=== PATIENT | female | born 1995 | race Caucasian/White ===

== ENCOUNTER 2023-05-08 09:45 | Emergency (ER) | payer OTHER, SELFPAY ==
[2023-05-08 10:04] VITALS: BP 117/71; PULSE 71; RESP 16; TEMP 36.3; O2SAT 98; BMI 29.2
--- NOTE | 2023-05-08 10:10 | DI.RAD.S_ITS ---
PROCEDURE: XR FINGER LT MIN 2V INDICATIONS: slammed in a door TECHNIQUE: AP hand, 2 views of the Dom finger(s) acquired. COMPARISON: None. FINDINGS: Bones: No fractures or dislocations. No suspicious bony lesions. Negative ulnar variance Soft tissues: No suspicious soft tissue calcifications. IMPRESSION: No acute bony abnormality. Negative ulnar variance Dictated by: Trev Kenney M.D. on 05/08/2023 at 9:39 Approved by: Trev Kenney M.D. on 05/08/2023 at 9:40
--- NOTE | 2023-05-08 11:23 | ED_ITS ---
HPI - Extremity Injury (Upper) <Evnes Plaza PA-C - Last Filed: 05/08/23 11:39> General Chief Complaint: Extremity Injury, Upper Stated Complaint: poss thumb fracture Time Seen by Provider: 05/08/23 11:16 History of Present Illness HPI narrative: This is a 27-year-old female presents emergency department due to left thumb injury that she sustained 2 days ago after slamming car door in it. She reports increased pain to the thumb. She states that this pain is spreading up to her hand. Denies any breaks in the skin but is concerned with the bleeding underneath the nail. States there is a slight amount of paresthesias Related Data Previous Rx's Medication Instructions Recorded cyclobenzaprine 10 mg tablet 10 mg PO TID PRN muscle spasm #20 05/08/23 tabs Review of Systems <Evens Palza PA-C - Last Filed: 05/08/23 11:39> Review of Systems Narrative: GENERAL: Denies chills, fatigue, malaise, fever, sweats. HEENT: Denies sinus pain, ear pain, sore throat, difficulty swallowing, dizziness. RESPIRATORY: Denies dyspnea, cough, wheezing, hemoptysis, sputum. CARDIOVASCULAR: Denies chest pain, palpitations, orthopnea, edema, GASTROINTESTINAL: Denies nausea, vomiting, abdominal pain, diarrhea, constipation, melena. : Denies dysuria, frequency, incontinence, hematuria, urinary retention. MUSCULOSKELETAL: Reports left thumb pain, otherwise denies weakness, joint pain, or bony pain SKIN: Denies rash, skin lesions, or other NEUROLOGIC: Denies weakness, headache, numbness, change in speech, confusion, seizures, incoordination. PSYCHIATRIC: No concerning psychosocial issues. 12 point review of systems is negative except for those stated above Exam <Evens Plaza PA-C - Last Filed: 05/08/23 11:39> Narrative Exam Narrative: GENERAL: Well-developed patient, in mild distress. HEAD: Atraumatic. Normocephalic. EYES: Pupils equal round and reactive. Extraocular motions intact. No scleral icterus. No injection or drainage. ENT: Nose without bleeding, purulent drainage. Throat without erythema, tonsillar hypertrophy or exudate. Airway patent. NECK: Trachea midline. Non tender CARDIOVASCULAR: Regular rate and rhythm without murmurs, gallops, or rubs. RESPIRATORY: Clear to auscultation. Breath sounds equal bilaterally. No wheezes, rales, or rhonchi. GASTROINTESTINAL: Abdomen soft, non-tender, nondistended. EXTREMITIES: Tenderness to palpation to the generalized left thumb. Subungual hematoma approximately 50% coverage BACK: Nontender without deformity or crepitance. No flank tenderness. NEURO: AOx3. SKIN: No rash or erythema of visible areas Initial Vital Signs Initial Vital Signs: Vital Signs Temperature 97.4 F L 05/08/23 10:04 Pulse Rate 71 05/08/23 10:04 Respiratory Rate 16 05/08/23 10:04 Blood Pressure 117/71 05/08/23 10:04 Pulse Oximetry 98 05/08/23 10:04 Oxygen Delivery Method Room Air 05/08/23 10:04 <Debi Kidd DO - Last Filed: 05/08/23 14:58> Initial Vital Signs Initial Vital Signs: Vital Signs Temperature 97.4 F L 05/08/23 10:04 Pulse Rate 71 05/08/23 10:04 Respiratory Rate 16 05/08/23 10:04 Blood Pressure 117/71 05/08/23 10:04 Pulse Oximetry 98 05/08/23 10:04 Oxygen Delivery Method Room Air 05/08/23 10:04 Course <Evens Plaza PA-C - Last Filed: 05/08/23 11:39> Orders Ordered: ED Orders 05/08/23 10:10 XR finger LT min 2V Stat Vital Signs Vital signs: Vital Signs - 8 hr 05/08/23 10:04 05/08/23 11:35 Temperature 97.4 F L 99.2 F Pulse Rate 71 78 Respiratory Rate 16 18 Blood Pressure 117/71 109/66 Pulse Oximetry 98 98 Oxygen Delivery Method Room Air Room Air <DO Romain Carrasco Last Filed: 05/08/23 14:58> Orders Ordered: ED Orders 05/08/23 10:10 XR finger LT min 2V Stat Vital Signs Vital signs: Vital Signs - 8 hr 05/08/23 10:04 05/08/23 11:35 Temperature 97.4 F L 99.2 F Pulse Rate 71 78 Respiratory Rate 16 18 Blood Pressure 117/71 109/66 Pulse Oximetry 98 98 Oxygen Delivery Method Room Air Room Air MDM - Extremity Injury (Upper) <NEIL Moore Filed: 05/08/23 11:39> Imaging Data Extremity x-ray #1: Radiologist's Impression: [address] [address] XRay Report Signed Patient: Rosmery Dooley MR#: [id number] : 1995 Acct:[id number] Age/Sex: 27 / F Date of Service: 05/08/23 Loc: ED Accession Number: [id number] Procedure: XR finger LT min 2V Ordering Provider: Debi Kidd D.O. PROCEDURE: XR FINGER LT MIN 2V INDICATIONS: slammed in a door TECHNIQUE: AP hand, 2 views of the Dom finger(s) acquired. COMPARISON: None. FINDINGS: Bones: No fractures or dislocations. No suspicious bony lesions. Negative ulnar variance Soft tissues: No suspicious soft tissue calcifications. IMPRESSION: No acute bony abnormality. Negative ulnar variance Dictated by: Terv Kenney M.D. on 05/08/2023 at 9:39 Approved by: Trev Kenney M.D. on 05/08/2023 at 9:40 MDM Narrative Medical decision making narrative: MDM * differential diagnosis includes but not limited to fracture, subungual hematoma, sprain * Prior records reviewed: Patient has not been to the emergency department in the past. * My lab interpretation: None obtained * My imgaing interpretation: X-ray negative for fractures or other abnormalities * Clinical Decision Rules/Scores evaluated: None * Independent discussions with: None ED Course: This is a 27-year-old female presents emergency department due to left thumb injury after swimming in a car door. X-ray was negative for fractures. There was a subungual hematoma. Drainage was discussed with the patient but shared decision-making utilized and no drainage will be performed today. Recommended ibuprofen and Tylenol as needed for the pain. Patient requested a Velcro thumb spica splint which she received. She also requested stated muscle relaxants as ibuprofen and Tylenol have been ineffective. This will also be prescribed. Shared Decision Making: Discussed plan with patient who is comfortable with the plan Social Considerations: None Disposition: Discharged to home Discharge Plan Departure Patient Disposition: Home Clinical Impression: Crush injury to thumb Qualifiers: Encounter type: subsequent encounter Laterality: left Qualified Code(s): S67.02XD - Crushing injury of left thumb, subsequent encounter Activity Restrictions/Additional Instructions: Thank you for coming to the [facility] Emergency Department today. As we discussed your repeat x-ray was negative for fractures. You may use the Velcro splint for comfort. I also recommend ibuprofen and Tylenol to help with the pain as well as ice and rest. You should also elevate the hand to help decrease the swelling. You may also take the muscle relaxants as prescribed. I hope you feel better soon. Please follow up with your primary care provider within a week if your symptoms continue. If you do not have a primary care provider please contact the [facility] Resource line at [phone]. They will ask some questions about your medical history and help you get set up with a provider in the community. Prescriptions: New cyclobenzaprine 10 mg tablet 10 mg PO TID PRN (Reason: muscle spasm) Qty: 20 0RF Stand Alone Forms: Patient Portal/API ED Sign-out <Debi Kidd DO - Last Filed: 05/08/23 14:58> Cosign ED Attending Adriane Attestation: I was immediately available in the department for consultation.
[2023-05-08 11:35] VITALS: BP 109/66; PULSE 78; RESP 18; TEMP 37.3; O2SAT 98
== END 2023-05-08 11:49 | disposition home or self-care (01) ==
PROVIDERS: Emergency Provider Physician Assistant Medical
DX: S67.02XA Crushing injury of left thumb, initial encounter (principal); X58.XXXA Exposure to other specified factors, initial encounter
CPT/HCPCS: 73140; 99283

== ENCOUNTER 2023-10-08 10:36 | Emergency (ER) | payer OTHER, SELFPAY ==
[2023-10-08 10:48] VITALS: BP 113/62; PULSE 68; RESP 16; TEMP 36.8; O2SAT 96; BMI 29.2
[2023-10-08 11:19] LABS: Pregnancy Test Urine Negative (Negative)
--- NOTE | 2023-10-08 11:51 | DI.US.S_ITS ---
PROCEDURE: US PELVIC COMPLETE INDICATIONS: LLQ pain, hx of ectopic x 2 TECHNIQUE: Real-time scanning was performed of the pelvic organs, with image documentation. Additional endovaginal scanning was necessary due to incomplete visualization of the adnexal and endometrial structures by transabdominal scanning. COMPARISON: None. FINDINGS: Uterus: Uterus is anteverted and normal in size at 9.3 x 4.9 x 6.4 cm. The myometrium is homogeneous. The endometrium measures 13.5 mm combined thickness. No evidence of intrauterine identified. Ovaries: The right ovary measures 3 x 3 x 1.8 cm, with a calculated ovarian volume of 8.6 cc. The left ovary measures 3.5 x 2 x 3.5 cm, with a calculated ovarian volume of 12.7 cc. The ovaries have a normal sonographic appearance. Less than 12 follicles can be seen in each ovary. No adnexal masses are seen. Other: No pathologic free abdominal or pelvic fluid. IMPRESSION: No intrauterine identified. Correlate with laboratory values. Normal pelvic ultrasound Dictated by: Trev Kenney M.D. on 10/08/2023 at 13:10 Approved by: Trev Kenney M.D. on 10/08/2023 at 13:20
[2023-10-08] MEDS: ONDANSETRON 4 MG ODT SL (12:14)
--- NOTE | 2023-10-08 12:15 | PC.NURSE ---
Patient reports she is three days late on her period with breast tenderness and nausea for the last week. She has been 9 times with 5 miscarriages and multiple ectopic pregnancies. She states home tests the last week have been negative however this is not uncommon for her. Requests a blood test. She also reports intermittent diarrhea with left side of abdomen pain.
[2023-10-08 13:24] LABS: Add Manual Diff / Slide Review NO; Basophils Absolute Auto 0 /uL (0-100); Basophils Percent Auto 0.5 % (0-2); Eosinophils Absolute Auto 100 /uL (0-450); Eosinophils Percent Auto 1.5 % (2-4); Hematocrit 37.1 % (36-46); Hemoglobin 11.7 g/dL (12.0-16.0); Lymphocytes Absolute Auto 2700 /uL (1100-4500); Lymphocytes Percent Auto 30.5 % (25-40); Mean Corpuscular HGB Conc 31.4 % (30-36); Mean Corpuscular Hemoglobin 24.2 PG (26-34); Monocytes Absolute Auto 400 /uL (0-900); Monocytes Percent Auto 4.8 % (3-14); Neutrophils Absolute Auto 5500 /uL (1500-7000); Neutrophils Percent Auto 62.7 % (50-75); Platelet Count 389 X10^3/uL (150-400); Red Blood Cell Count 4.81 X10^6/uL (4.0-5.2); Red Cell Distribution Width 17.4 % (11.6-14.8); White Blood Cell Count 8.8 X10^3/uL (4.5-11.0)
[2023-10-08 13:42] LABS: Alanine Aminotransferase 28 IU/L (<35); Albumin 4.4 g/dL (3.5-5.0); Albumin Globulin Ratio 1.3 (1.0-2.8); Alkaline Phosphatase 117 U/L (38-126); Aspartate Aminotransferase 33 IU/L (14-36); BUN Creatinine Ratio 15.6 (6-22); Bilirubin Total 0.4 mg/dL (0.2-1.3); Blood Urea Nitrogen 10 mg/dL (7-17); Calcium 8.9 mg/dL (8.4-10.2); Carbon Dioxide 24 mmol/L (22-32); Chloride 110 mmol/L (98-107); Estimated Glomerular Filt Rate > 60 mL/min (>60); Globulin 3.5 g/dL (1.7-4.1); Glucose 88 mg/dL (70-100); HEMOLYSIS < 15 (0-50); Potassium 4.4 mmol/L (3.4-5.1); Sodium 140 mmol/L (137-145); Total Protein 7.9 g/dL (6.3-8.2)
--- NOTE | 2023-10-08 13:42 | ED_ITS ---
HPI - Nausea/Vomiting/Diarrhea <Valarie Collins PA-C - Last Filed: 10/08/23 19:45> General Chief complaint: Nausea/Vomiting/Diarrhea Stated complaint: nausea, diarrhea, light headed Time Seen by Provider: 10/08/23 11:29 Source: patient Mode of arrival: Ambulatory History of Present Illness HPI Narrative: 27-year-old female here today for nausea and diarrhea along with left lower quadrant pain. States she has had nausea for 1 week. The diarrhea was ongoing for 3 or 4 days which she presumed for systemic flu then it resolved for a couple of days before returning yesterday. Diarrhea is watery. She has off and on left lower quadrant pain which she describes as sharp. No fevers or chills. No urinary symptoms. No vaginal bleeding. States her menses is 3 days late so she has taken several at home tests to which were negative and 1 which was maybe a faint positive. She has a history of multiple ectopic pregnancies. States she has had 9 total pregnancies and 5 resulted in miscarriage. She has some stringy white vaginal discharge but no vaginal itching, foul smell, or purulent discharge. No STD concerns. No vomiting. Related Data Previous Rx's Medication Instructions Recorded cyclobenzaprine 10 mg tablet 10 mg PO TID PRN muscle spasm #20 05/08/23 tabs ondansetron HCl 4 mg tablet 4 mg PO Q8H PRN nausea and 10/08/23 vomiting #10 tabs Allergies Allergy/AdvReac Type Severity Reaction Status Date / Time naproxen AdvReac Verified 10/08/23 10:48 Review of Systems <Valarie Collins PA-C - Last Filed: 10/08/23 19:45> Review of Systems ROS Unobtainable: All systems reviewed & are unremarkable except as noted in HPI and below Patient History <Valarie Collins PA-C - Last Filed: 10/08/23 19:45> Social History Smoking Status: Never smoker Smoking Status: Never smoker alcohol intake frequency: holidays/special occasions only Substance Use Type: marijuana Exam <NEIL Badillo Last Filed: 10/08/23 19:45> Narrative Exam Narrative: GENERAL: Well-developed, well-nourished, appears stated age. In no acute distress HEAD: Atraumatic. Normocephalic. EYES: Pupils equal round and reactive. Extraocular motions intact. No scleral icterus. No injection or drainage. ENT: Nose without bleeding, purulent drainage. Airway patent. NECK: Trachea midline. Non tender RESPIRATORY: Respiratory rate and effort normal EXTREMITIES: No edema or joint tenderness. ABD: Soft, nondistended, no rebound or guarding. Mild pelvic area. No suprapubic tenderness. No mass palpated. NEURO: AOx3. SKIN: No rash or erythema of visible areas Initial Vital Signs Initial Vital Signs: Vital Signs Temperature 98.3 F 10/08/23 10:48 Pulse Rate 68 10/08/23 10:48 Respiratory Rate 16 10/08/23 10:48 Blood Pressure 113/62 10/08/23 10:48 Pulse Oximetry 96 10/08/23 10:48 Oxygen Delivery Method Room Air 10/08/23 10:48 <Alexandre Mcdermott DO - Last Filed: 10/13/23 07:08> Initial Vital Signs Initial Vital Signs: Vital Signs Temperature 98.3 F 10/08/23 10:48 Pulse Rate 68 10/08/23 10:48 Respiratory Rate 16 10/08/23 10:48 Blood Pressure 113/62 10/08/23 10:48 Pulse Oximetry 96 10/08/23 10:48 Oxygen Delivery Method Room Air 10/08/23 10:48 Course <Valarie Collins PA-C - Last Filed: 10/08/23 19:45> Orders Ordered: Discontinued Medications Ondansetron HCl (Ondansetron 4 Mg Odt) 4 mg SL NOW ONE Stop: 10/08/23 11:52 Last Admin: 10/08/23 12:14 Dose: 4 mg Documented By: BRIANNA Vital Signs Vital signs: Vital Signs - 8 hr 10/08/23 14:39 Temperature 98.0 F Pulse Rate 67 Respiratory Rate 18 Blood Pressure 104/66 Pulse Oximetry 100 Oxygen Delivery Method Room Air <Alexandre Mcdermott DO - Last Filed: 10/13/23 07:08> Orders Ordered: Discontinued Medications Ondansetron HCl (Ondansetron 4 Mg Odt) 4 mg SL NOW ONE Stop: 10/08/23 11:52 Last Admin: 10/08/23 12:14 Dose: 4 mg Documented By: BRIANNA Vital Signs Vital signs: Vital Signs - 8 hr 10/08/23 14:39 Temperature 98.0 F Pulse Rate 67 Respiratory Rate 18 Blood Pressure 104/66 Pulse Oximetry 100 Oxygen Delivery Method Room Air MDM - Nausea/Vomiting/Diarrhea <Valarie Natalia Collins PA-C - Last Filed: 10/08/23 19:45> Lab Data 10/08/23 12:26 10/08/23 12:26 Labs: Lab Results 10/08/23 10/08/23 Range/Units 11:18 12:26 WBC 8.8 (4.5-11.0) X10^3/uL RBC 4.81 (4.0-5.2) X10^6/uL Hgb 11.7 L (12.0-16.0) g/dL Hct 37.1 (36-46) % MCV 77.0 L (80-100) fL MCH 24.2 L (26-34) PG MCHC 31.4 (30-36) % RDW 17.4 H (11.6-14.8) % Plt Count 389 (150-400) X10^3/uL Neut % (Auto) 62.7 (50-75) % Lymph % (Auto) 30.5 (25-40) % [place] % (Auto) 4.8 (3-14) % Eos % (Auto) 1.5 L (2-4) % Baso % (Auto) 0.5 (0-2) % Neut # (Auto) 5500 (3506-7494) /uL Lymph # (Auto) 2700 (2024-3480) /uL [place] # (Auto) 400 (0-900) /uL Eos # (Auto) 100 (0-450) /uL Baso # (Auto) 0 (0-100) /uL Sodium 140 (137-145) mmol/L Potassium 4.4 (3.4-5.1) mmol/L Chloride 110 H (98-107) mmol/L Carbon Dioxide 24 (22-32) mmol/L BUN 10 (7-17) mg/dL Creatinine 0.64 (0.52-1.04) mg/dL Estimated GFR > 60 (>60) mL/min BUN/Creatinine Ratio 15.6 (6-22) Glucose 88 (70-100) mg/dL Calcium 8.9 (8.4-10.2) mg/dL Total Bilirubin 0.4 (0.2-1.3) mg/dL AST 33 (14-36) IU/L ALT 28 (<35) IU/L Alkaline Phosphatase 117 (38-126) U/L Total Protein 7.9 (6.3-8.2) g/dL Albumin 4.4 (3.5-5.0) g/dL Globulin 3.5 (1.7-4.1) g/dL Albumin/Globulin Ratio 1.3 (1.0-2.8) HCG, Quant < 2.4 mIU/mL Urine Test Negative (Negative) Urine Dip Bedside Urine Glucose Negative Bedside Urine Bilirubin - Negative Bedside Urine Ketone - Negative Urine Specific [place] 1.030 Bedside Urine Occult Blood - Negative Bedside Urine pH 6.0 Bedside Urine Protein - Negative Bedside Urine Urobilinogen - Negative Bedside Urine Nitrite - Negative Bedside Urine Leukocytes - Negative Esterase Imaging Data Pelvic US: Radiologist's Impression: [address] [address] Ultrasound Report Signed Patient: Rosmery Dooley MR#: [id number] : 1995 Acct:[id number] Age/Sex: 27 / F Date of Service: 10/08/23 Loc: ED Accession Number: [id number] Procedure: US pelvic complete Ordering Provider: Valarie Collins P.A-C PROCEDURE: US PELVIC COMPLETE INDICATIONS: LLQ pain, hx of ectopic x 2 TECHNIQUE: Real-time scanning was performed of the pelvic organs, with image documentation. Additional endovaginal scanning was necessary due to incomplete visualization of the adnexal and endometrial structures by transabdominal scanning. COMPARISON: None. FINDINGS: Uterus: Uterus is anteverted and normal in size at 9.3 x 4.9 x 6.4 cm. The myometrium is homogeneous. The endometrium measures 13.5 mm combined thickness. No evidence of intrauterine identified. Ovaries: The right ovary measures 3 x 3 x 1.8 cm, with a calculated ovarian volume of 8.6 cc. The left ovary measures 3.5 x 2 x 3.5 cm, with a calculated ovarian volume of 12.7 cc. The ovaries have a normal sonographic appearance. Less than 12 follicles can be seen in each ovary. No adnexal masses are seen. Other: No pathologic free abdominal or pelvic fluid. IMPRESSION: No intrauterine identified. Correlate with laboratory values. Normal pelvic ultrasound Dictated by: Trev Kenney M.D. on 10/08/2023 at 13:10 Approved by: Trev Kenney M.D. on 10/08/2023 at 13:20 [facility] Narrative Medical decision making narrative: Differential includes viral gastroenteritis, ectopic , normal uterine , ovarian cyst Patient's urine and serum HCG negative today. Her pelvic ultrasound was unremarkable. She was given some Zofran for nausea which she says helped considerably. She has been having some intermittent watery diarrhea and nausea x1 week which appears to be consistent with viral gastroenteritis. Her vital signs and her CBC and CMP are unremarkable, she appears well and is nontoxic. Relatively benign abdominal exam other than mild TTP to the left lower quadrant. Recommend continuing supportive care at home with hydration, brat diet, Zofran as needed. Her menses is 3 days late so continue to monitor and if she has any very heavy/abnormal bleeding she should return to the ED. If she is any new or worsening symptoms she should return to the ED, otherwise follow up with PCP if not improving. <Alexandre Mcdermott, DO - Last Filed: 10/13/23 07:08> Lab Data Labs: Lab Results 10/08/23 10/08/23 Range/Units 11:18 12:26 WBC 8.8 (4.5-11.0) X10^3/uL RBC 4.81 (4.0-5.2) X10^6/uL Hgb 11.7 L (12.0-16.0) g/dL Hct 37.1 (36-46) % MCV 77.0 L (80-100) fL MCH 24.2 L (26-34) PG MCHC 31.4 (30-36) % RDW 17.4 H (11.6-14.8) % Plt Count 389 (150-400) X10^3/uL Neut % (Auto) 62.7 (50-75) % Lymph % (Auto) 30.5 (25-40) % [place] % (Auto) 4.8 (3-14) % Eos % (Auto) 1.5 L (2-4) % Baso % (Auto) 0.5 (0-2) % Neut # (Auto) 5500 (6859-6755) /uL Lymph # (Auto) 2700 (6115-2602) /uL [place] # (Auto) 400 (0-900) /uL Eos # (Auto) 100 (0-450) /uL Baso # (Auto) 0 (0-100) /uL Sodium 140 (137-145) mmol/L Potassium 4.4 (3.4-5.1) mmol/L Chloride 110 H (98-107) mmol/L Carbon Dioxide 24 (22-32) mmol/L BUN 10 (7-17) mg/dL Creatinine 0.64 (0.52-1.04) mg/dL Estimated GFR > 60 (>60) mL/min BUN/Creatinine Ratio 15.6 (6-22) Glucose 88 (70-100) mg/dL Calcium 8.9 (8.4-10.2) mg/dL Total Bilirubin 0.4 (0.2-1.3) mg/dL AST 33 (14-36) IU/L ALT 28 (<35) IU/L Alkaline Phosphatase 117 (38-126) U/L Total Protein 7.9 (6.3-8.2) g/dL Albumin 4.4 (3.5-5.0) g/dL Globulin 3.5 (1.7-4.1) g/dL Albumin/Globulin Ratio 1.3 (1.0-2.8) HCG, Quant < 2.4 mIU/mL Urine Test Negative (Negative) Urine Dip Bedside Urine Glucose Negative Bedside Urine Bilirubin - Negative Bedside Urine Ketone - Negative Urine Specific [place] 1.030 Bedside Urine Occult Blood - Negative Bedside Urine pH 6.0 Bedside Urine Protein - Negative Bedside Urine Urobilinogen - Negative Bedside Urine Nitrite - Negative Bedside Urine Leukocytes - Negative Esterase Discharge Plan Departure Patient Disposition: Home Clinical Impression: Nausea Diarrhea Qualifiers: Diarrhea type: unspecified type Qualified Code(s): R19.7 - Diarrhea, unspecified Instructions: Diarrhea, DI for Nausea -- Adult Activity Restrictions/Additional Instructions: Thank you for choosing us to care for you today. You were seen for nausea and diarrhea. Your test was negative and your pelvic ultrasound showed no abnormal studies. Your blood tests were all reassuring that you do not have any significant infection or other serious illness at this time. You likely have a viral stomach bug that typically resolves on its own within 1-2 weeks. You have been given a prescription for nausea medication to take as needed. You may also take 2 tablets of Imodium which can be found [id number] for her diarrhea. Please continue to hydrate, avoid dairy products, and get plenty of rest. If her symptoms do not resolve in another 1-2 weeks please follow up with your primary care physician. Prescriptions: New ondansetron HCl 4 mg tablet 4 mg PO Q8H PRN (Reason: nausea and vomiting) Qty: 10 0RF No Action cyclobenzaprine 10 mg tablet 10 mg PO TID PRN (Reason: muscle spasm) Qty: 20 0RF Stand Alone Forms: Patient Portal/API ED Sign-out <Alexandre Mcdermott, DO - Last Filed: 10/13/23 07:08> Cosign ED Attending Cosignature Attestation: Dr Mcdermott Co-Sign Statement: I was available for consultation during this patient's emergency department visit. This chart is signed by myself for administrative purposes only. I did not have direct contact with this patient during this visit. They were seen independently by the APC.
[2023-10-08 13:58] LABS: HCG Quantitative /Beta subunit < 2.4 mIU/mL
[2023-10-08 14:39] VITALS: BP 104/66; PULSE 67; RESP 18; TEMP 36.7; O2SAT 100
== END 2023-10-08 14:56 | disposition home or self-care (01) ==
PROVIDERS: Emergency Provider Physician Assistant
DX: R11.0 Nausea (principal); R19.7 Diarrhea, unspecified; R10.32 Left lower quadrant pain
CPT/HCPCS: 36415; 76856; 80053; 81003; 81025; 84702; 85025; 99284

== ENCOUNTER 2023-11-20 15:08 | Emergency (ER) | payer MEDICAID, OTHER, SELFPAY ==
[2023-11-20 15:30] VITALS: BP 122/59; PULSE 85; RESP 16; TEMP 37.1; O2SAT 97; BMI 28.4
--- NOTE | 2023-11-20 15:38 | DI.RAD.S_ITS ---
PROCEDURE: XR ANKLE RT MIN 3V INDICATIONS: Fell, having swelling and unable to bear weight. TECHNIQUE: 3 views of the ankle were acquired. COMPARISON: None. FINDINGS: Bones: No fractures or dislocations. Ankle mortise is normally aligned. No suspicious bony lesions. Dorsal calcaneal spur. Soft tissues: No tibiotalar joint effusion. Achilles tendon appears normal. IMPRESSION: No acute bony abnormality or significant effusion. Dictated by: Trev Kenney M.D. on 11/20/2023 at 15:26 Approved by: Trev Kenney M.D. on 11/20/2023 at 15:27
--- NOTE | 2023-11-20 16:51 | ED.LOWEXIN ---
HPI - Extremity Injury (Lower) <STEPHANIE Cramer - Last Filed: 11/20/23 17:07> General Chief Complaint: Extremity Injury, Lower Stated Complaint: R Ankle Injury Time Seen by Provider: 11/20/23 16:32 Source: patient Mode of arrival: Family Vehicle History of Present Illness HPI Narrative: 28-year-old female, never smoker, presents to the emergency department with right ankle pain x1 week. Patient was walking[place], and believes she rolled her ankle. Patient reports that home treatment included rest, ice and elevation. Patient took the weekend off because the pain seems to be getting worse and she is unable to bear weight. Related Data Previous Rx's Medication Instructions Recorded cyclobenzaprine 10 mg tablet 10 mg PO TID PRN muscle spasm #20 05/08/23 tabs ondansetron HCl 4 mg tablet 4 mg PO Q8H PRN nausea and 10/08/23 vomiting #10 tabs Allergies Allergy/AdvReac Type Severity Reaction Status Date / Time naproxen AdvReac Verified 10/08/23 10:48 Review of Systems <STEPHANIE Cramer - Last Filed: 11/20/23 17:07> Review of Systems Narrative: Narrative: See HPI. GENERAL: Denies chills, fatigue, fever, sweats. HEENT: Denies sinus pain, ear pain, sore throat, difficulty swallowing, dizziness. RESPIRATORY: Denies dyspnea, cough, wheezing, sputum. CARDIOVASCULAR: Denies chest pain, palpitations, edema. GASTROINTESTINAL: Denies nausea, vomiting, abdominal pain, diarrhea, constipation. : Denies dysuria, frequency, incontinence, hematuria, urinary retention, flank pain. MSK: Endorses right ankle pain. SKIN: Denies rash, skin lesions, or pruritis. NEUROLOGIC: Denies weakness, dizziness, headache, numbness, confusion. PSYCHIATRIC: No concerning psychosocial issues. Patient History <STEPHANIE Cramer - Last Filed: 11/20/23 17:07> Social History Smoking Status: Never smoker Smoking Status: Never smoker alcohol intake frequency: holidays/special occasions only Substance Use Type: marijuana Exam <STEPHANIE Cramer - Last Filed: 11/20/23 17:07> Narrative Exam Narrative: Exam Narrative: GENERAL: This is a well-nourished, well-developed patient, in no acute distress HEAD: Atraumatic. Normocephalic. ENT: Nose without bleeding, purulent drainage. Airway patent. RESPIRATORY: Respiratory rate and effort are normal. MSK: Moves all extremities. Normal range of motion, no clubbing or edema. Neurovascularly intact. NEURO: A&O x 3. SKIN: Warm, dry, no rashes or lesions noted. ANKLE: There is minimal swelling, bruising but no asymmetry. There is no tenderness to general palpation. Sensation grossly intact. There is mild tenderness inferior to medial malleolus but no tenderness over the lateral malleolus, proximal tibia/fibula, metatarsals, midfoot or arch. The anterior mortise is non-tender. Flexion and extension is intact. Unable to test for stability or laxity due to pain. The contralateral ankle exam is unremarkable. Initial Vital Signs Initial Vital Signs: Vital Signs Temperature 98.8 F 11/20/23 15:30 Pulse Rate 85 11/20/23 15:30 Respiratory Rate 16 11/20/23 15:30 Blood Pressure 122/59 L 11/20/23 15:30 Pulse Oximetry 97 11/20/23 15:30 Oxygen Delivery Method Room Air 11/20/23 15:30 Reviewed <Debi Kidd DO - Last Filed: 11/23/23 15:17> Initial Vital Signs Initial Vital Signs: Vital Signs Temperature 98.8 F 11/20/23 15:30 Pulse Rate 85 11/20/23 15:30 Respiratory Rate 16 11/20/23 15:30 Blood Pressure 122/59 L 11/20/23 15:30 Pulse Oximetry 97 11/20/23 15:30 Oxygen Delivery Method Room Air 11/20/23 15:30 Course <STEPHANIE Cramer - Last Filed: 11/20/23 17:07> Orders Ordered: ED Orders 11/20/23 15:38 XR ankle RT min 3V Stat Vital Signs Vital signs: Vital Signs - 8 hr 11/20/23 15:30 Temperature 98.8 F Pulse Rate 85 Respiratory Rate 16 Blood Pressure 122/59 L Pulse Oximetry 97 Oxygen Delivery Method Room Air <DO Romain Carrasco Last Filed: 11/23/23 15:17> Orders Ordered: ED Orders 11/20/23 15:38 XR ankle RT min 3V Stat Vital Signs Vital signs: Vital Signs - 8 hr 11/20/23 15:30 Temperature 98.8 F Pulse Rate 85 Respiratory Rate 16 Blood Pressure 122/59 L Pulse Oximetry 97 Oxygen Delivery Method Room Air MDM - Extremity Injury (Lower) <Alexandre STEPHANIE Suazo - Last Filed: 11/20/23 17:07> Differential Diagnosis Differential diagnosis: Likely ankle sprain and strain and ankle fracture Imaging Data Extremity x-ray #1: My Impression: Normal ankle Radiologist's Impression: [address] [address] XRay Report Signed Patient: Rosmery Dooley MR#: [id number] : 1995 Acct:[id number] Age/Sex: 28 / F Date of Service: 11/20/23 Loc: ED Accession Number: [id number] Procedure: XR ankle RT min 3V Ordering Provider: Debi Kidd D.O. PROCEDURE: XR ANKLE RT MIN 3V INDICATIONS: Fell, having swelling and unable to bear weight. TECHNIQUE: 3 views of the ankle were acquired. COMPARISON: None. FINDINGS: Bones: No fractures or dislocations. Ankle mortise is normally aligned. No suspicious bony lesions. Dorsal calcaneal spur. Soft tissues: No tibiotalar joint effusion. Achilles tendon appears normal. IMPRESSION: No acute bony abnormality or significant effusion. Dictated by: Trev Kenney M.D. on 11/20/2023 at 15:26 Approved by: Trev Kenney M.D. on 11/20/2023 at 15:27 [facility] Narrative Medical decision making narrative: 28-year-old female with right ankle injury. Assessment was completely unremarkable and x-ray was normal. I believe patient has a sprain of her right ankle. Discussed supportive care measures such as Rest (modified activity), along with ice, compression wrap/splint-immobilize as directed and elevation above heart. Tylenol or Ibuprofen for discomfort. Discussed plan of care and return precautions with patient and , who verbalized understanding and were agreeable with course of action. Discharge Plan Departure Patient Disposition: Home Clinical Impression: Ankle sprain and strain Instructions: DI for Ankle Sprain Activity Restrictions/Additional Instructions: *You have been diagnosed with a right ankle sprain. It was a pleasure meeting you. My assessment was encouraging and the x-ray was normal. No fractures. You have a sprain of your right ankle, which will take time to heal. As we discussed, good supportive care includes Rest (modified activity), along with ice, compression wrap/splint-immobilize as directed and elevation above heart. Tylenol or Ibuprofen for discomfort. I recommend ibuprofen 600 mg 3 times a day, with food, for the next 5-7 days. For any worsening symptoms, please feel free to return to the emergency department. Otherwise, please follow-up with your family doctor as needed. *What to do: *Please continue to take your regular medications as directed. [ ] New medication prescriptions sent to your pharmacy: [ ] [ ] New medication written as a paper prescription [x ] No new medications given *Please follow up with your primary care provider in 2-3 days, call for an appointment. Let them know you were seen in the Emergency Department and that we ask that you be seen in follow up. We will electronically transmit a record of today's note if your PCP is in our system *If you do not have a primary care provider please contact the [facility] Resource line at [phone]. They will ask some questions about your medical history and help get you set up with a doctor in the community. ? Return to ER if you should have any new, worsening or concerning symptoms, such as worsening pain, severe headache, confusion, chest pain, difficulty breathing, fever greater than 101 F, shaking chills, persistent vomiting to the point that you cannot drink fluids, or other new or worsening symptoms. Prescriptions: No Action cyclobenzaprine 10 mg tablet 10 mg PO TID PRN (Reason: muscle spasm) Qty: 20 0RF ondansetron HCl 4 mg tablet 4 mg PO Q8H PRN (Reason: nausea and vomiting) Qty: 10 0RF Stand Alone Forms: Patient Portal/API ED Sign-out <Debi Kidd DO - Last Filed: 11/23/23 15:17> Cosign ED Attending Adirane Attestation: I was immediately available in the department for consultation.
[2023-11-20 17:07] VITALS: BP 108/75; PULSE 91; RESP 18; O2SAT 98
== END 2023-11-20 17:09 | disposition home or self-care (01) ==
PROVIDERS: Emergency Provider Registered Nurse
DX: S93.401A Sprain of unspecified ligament of right ankle, initial encounter (principal); S96.911A Strain of unspecified muscle and tendon at ankle and foot level, right foot, initial encounter; X50.1XXA Overexertion from prolonged static or awkward postures, initial encounter; Y93.01 Activity, walking, marching and hiking
CPT/HCPCS: 73610; 99281; 99282

== ENCOUNTER 2024-03-13 14:30 | Emergency (ER) | payer OTHER, MEDICAID, SELFPAY ==
[2024-03-13 14:47] VITALS: BP 118/73; PULSE 86; RESP 16; TEMP 36.6; O2SAT 99; BMI 29.2
--- NOTE | 2024-03-13 14:56 | ED.GENADULT ---
HPI - General Adult General Chief complaint: Abdominal Pain Stated complaint: Late Period, history of Ectopic Preg Time Seen by Provider: 03/13/24 14:55 Source: patient Mode of arrival: Ambulatory History of Present Illness HPI narrative: 28-year-old woman with no significant medical history she and her have been trying to get for the last 6 months. She is 3 days late for her menstrual cycle, on test is negative she is having more than 24 hours of significant left lower quadrant tenderness enough that it caused her to lose sleep last night. She does have a history of 2 prior ectopic pregnancies. She has no other complaints, there has been no constipation, dysuria, vaginal discharge, back pain, trauma, flank pain Related Data Previous Rx's Medication Instructions Recorded cyclobenzaprine 10 mg tablet 10 mg PO TID PRN muscle spasm #20 05/08/23 tabs ondansetron HCl 4 mg tablet 4 mg PO Q8H PRN nausea and 10/08/23 vomiting #10 tabs trazodone 50 mg tablet 50 mg PO BEDTIME PRN insomnia #20 03/13/24 tabs Allergies Allergy/AdvReac Type Severity Reaction Status Date / Time naproxen AdvReac Hives Verified 03/13/24 14:47 Review of Systems Review of Systems Narrative: Pertinent positive and negative findings as per HPI Patient History Social History Smoking Status: Never smoker Smoking Status: Never smoker alcohol intake frequency: holidays/special occasions only Substance Use Type: marijuana Exam Initial Vital Signs Initial Vital Signs: Vital Signs Temperature 97.8 F 03/13/24 14:47 Pulse Rate 86 03/13/24 14:47 Respiratory Rate 16 03/13/24 14:47 Blood Pressure 118/73 03/13/24 14:47 Pulse Oximetry 99 03/13/24 14:47 Oxygen Delivery Method Room Air 03/13/24 14:47 General: Healthy appearing, in no acute distress. Able to give a complete and coherent history. Well-nourished well-developed HEENT: Moist mucous membranes, normal sclera with reactive pupils, Respiratory: Lungs are clear to auscultation, no wheezing no rales no rhonchi. Full and symmetrical air movement Cardiac: Regular rate and rhythm no murmurs no bruits Abdomen: Soft, mild tenderness in the left lower quadrant/left pelvic area, no flank pain Skin: Warm and dry, no rashes Neurologic: Grossly neurologically intact with no obvious asymmetries or abnormalities Extremities: No trauma, well perfused Psych: Cooperative, appropriate insight and affect Course Vital Signs Vital signs: Vital Signs - 8 hr 03/13/ 14:47 Temperature 97.8 F Pulse Rate 86 Respiratory Rate 16 Blood Pressure 118/73 Pulse Oximetry 99 Oxygen Delivery Method Room Air Medical Decision Making MDM Narrative Medical decision making narrative: CC: Left lower quadrant pain Complicating co-morbidities: Trying to get , menstrual cycle 3 days late, to prior ectopic pregnancies Data collected from: patient Differential considered: Constipation, pyelonephritis, kidney stone, ovarian cyst, ovarian torsion, pre menstrual cramping Exam documented above, pertinent findings include: Exam has some mild tenderness in the left pelvis/lower quadrant without rebound or guarding remainder of exam is benign Lab Test results independently reviewed as above. Pertinent findings: Urine test is unremarkable Urinalysis shows no abnormalities Imaging studies independently reviewed: Preliminary pelvic ultrasound results show adenomyosis without evidence of kidney abnormality, ovarian torsion or ovarian cyst Discussion: Findings reviewed with the patient. She is very concerned that her menstrual cycle is 3 days late. I reassured her that sometimes menstrual cycles are not completely reliable. At this point she has absolutely not . She requested help with sleeping medication she is having difficulty sleeping because of the pain and anxiety, in the past trazodone is working well for her. She is seen her regular doctor on . She has been using ibuprofen and Tylenol to help with the pain presumably from the adenomyosis. If this continues to be an issue her primary care physician can consider additional follow up and possible MRI to further quantify the degree of adenomyosis appreciated. At this point reassurance is given a patient is safe for discharge Discharge Plan Departure Patient Disposition: Home Clinical Impression: Acute left lower quadrant pain Activity Restrictions/Additional Instructions: Thank you for coming in today The ultrasound shows that you do not have any ovarian cysts, the ovary itself has nice blood flow to it it is not twisting on itself to cause the pain. There was no evidence of infection, kidney stone, kidney infection, pelvic inflammatory disease, significant constipation or other explanation for the pain that you are experiencing The ultrasound did suggest that you had some mild adenomyosis. This is a condition where there is some endometrial tissue grows outside the uterus. Because your period Is 3 days late, there may be more growth than usual and this is causing the problem. This is not a new finding, likely is not the single cause of your pain but it might be contributing to your pain. If that is the case, it is going to become significantly better once this menstrual cycle does start. Continuing to use ibuprofen we will be helpful. I have given you a small prescription of trazodone to help with sleep until you are able to get into see your physician. [facility] [place] If you find that you are getting worse or develop any new symptoms, please feel free to return to the emergency department for further evaluation. Prescriptions: New trazodone 50 mg tablet 50 mg PO BEDTIME PRN (Reason: insomnia) Qty: 20 0RF No Action cyclobenzaprine 10 mg tablet 10 mg PO TID PRN (Reason: muscle spasm) Qty: 20 0RF ondansetron HCl 4 mg tablet 4 mg PO Q8H PRN (Reason: nausea and vomiting) Qty: 10 0RF Stand Alone Forms: Patient Portal/API
--- NOTE | 2024-03-13 15:06 | DI.US.S_ITS ---
PROCEDURE: US PELVIC COMPLETE INDICATIONS: Left pelvic pain, ? ov cyst, torsion. - U preg TECHNIQUE: Real-time scanning was performed of the pelvic organs, with image documentation. Additional endovaginal scanning was necessary due to incomplete visualization of the adnexal and endometrial structures by transabdominal scanning. COMPARISON: [facility], , US PELVIC COMPLETE, 10/08/2023, 13:23. FINDINGS: Uterus: Uterus is anteverted and enlarged in size at 9.2 x 6.3 x 5.0 cm. The myometrium is heterogeneous. No discrete uterine fibroid is seen with overall appearance concerning for adenomyosis. The endometrium measures 7.4 mm combined thickness. No gross endometrial mass is seen. Small amount of fluid is noted within endometrium. Ovaries: The right ovary measures 2.7 x 2.8 x 1.6 cm, with a calculated ovarian volume of 6.4 cc. The left ovary measures 3.3 x 3.2 x 2.6 cm. The ovaries have a normal sonographic appearance. Less than 12 follicles can be seen in each ovary. No adnexal masses are seen. Other: No pathologic free abdominal or pelvic fluid. IMPRESSION: 1. Large uterus with heterogeneous myometrial echotexture, no discrete uterine fibroids are seen. Adenomyosis cannot be excluded. 2. No discrete endometrial mass is seen. Small amount of endometrial fluid. 3. Normal appearing bilateral ovaries. No evidence of ovarian torsion. We strive to produce accurate, complete, and clear reports of imaging services. To assist us in improving patient care, this report was composed using standard report templates and voice recognition software. Therefore, it may contain abnormal punctuation, insertions and/or omissions. Occasional wrong-word or sound-alike substitutions may occur. Though we review the report and make efforts to correct it, we do recommend that the report be read carefully in proper context to recognize any text inaccuracies. Dictated by: Ravinder Dutta M.D. on 03/13/2024 at 16:16 Approved by: Ravinder Dutta M.D. on 03/13/2024 at 16:20
[2024-03-13] MEDS: SODIUM CHLORIDE 0.9% 1,000 ML 1000 ML IV (15:30)
[2024-03-13 15:33] LABS: Add Manual Diff / Slide Review NO; Basophils Absolute Auto 0 /uL (0-100); Basophils Percent Auto 0.6 % (0-2); Eosinophils Absolute Auto 100 /uL (0-450); Eosinophils Percent Auto 1.5 % (2-4); Hematocrit 35.2 % (36-46); Hemoglobin 11.7 g/dL (12.0-16.0); Lymphocytes Absolute Auto 2800 /uL (1100-4500); Lymphocytes Percent Auto 32.7 % (25-40); Mean Corpuscular HGB Conc 33.3 % (30-36); Mean Corpuscular Hemoglobin 26.2 PG (26-34); Mean Corpuscular Volume 78.6 fL (80-100); Monocytes Absolute Auto 600 /uL (0-900); Monocytes Percent Auto 6.9 % (3-14); Neutrophils Absolute Auto 4900 /uL (1500-7000); Neutrophils Percent Auto 58.3 % (50-75); Platelet Count 370 X10^3/uL (150-400); Red Blood Cell Count 4.48 X10^6/uL (4.0-5.2); Red Cell Distribution Width 14.1 % (11.6-14.8); White Blood Cell Count 8.4 X10^3/uL (4.5-11.0)
[2024-03-13 15:53] LABS: Alanine Aminotransferase 25 IU/L (<35); Albumin 4.1 g/dL (3.5-5.0); Alkaline Phosphatase 104 U/L (38-126); Aspartate Aminotransferase 35 IU/L (14-36); BUN Creatinine Ratio 17.6 (6-22); Bilirubin Total 0.8 mg/dL (0.2-1.3); Blood Urea Nitrogen 13 mg/dL (7-17); Calcium 8.8 mg/dL (8.4-10.2); Carbon Dioxide 22 mmol/L (22-32); Chloride 106 mmol/L (98-107); Estimated Glomerular Filt Rate > 60 mL/min (>60); Glucose 85 mg/dL (70-100); Sodium 135 mmol/L (137-145); Total Protein 8.1 g/dL (6.3-8.2)
[2024-03-13 15:57] LABS: HEMOLYSIS 85 (0-50); Potassium 4.6 mmol/L (3.4-5.1)
[2024-03-13 16:09] LABS: HCG Quantitative /Beta subunit < 2.39 mIU/mL
[2024-03-13 16:44] VITALS: BP 123/73; PULSE 66; RESP 16; TEMP 36.6; O2SAT 99
== END 2024-03-13 16:45 | disposition home or self-care (01) ==
PROVIDERS: Emergency Provider Emergency Medicine
DX: R10.32 Left lower quadrant pain (principal)
CPT/HCPCS: 76830; 76856; 80053; 81003; 81025; 84702; 85025; 93975; 96360; 99283; 99284

== ENCOUNTER 2024-03-21 15:20 | Emergency (ER) | payer OTHER, MEDICAID, SELFPAY ==
[2024-03-21 15:36] VITALS: BP 113/75; PULSE 65; RESP 16; TEMP 36.9; O2SAT 99; BMI 32.4
--- NOTE | 2024-03-21 16:16 | ED.ABDPAIN ---
HPI - Abdominal Pain General Chief Complaint: Abdominal Pain Stated Complaint: Abd Cramping, Light Headed, High HR, N/V Time Seen by Provider: 03/21/24 16:16 Source: patient Mode of arrival: Ambulatory History of Present Illness HPI narrative: Patient is a 28-year-old female no significant past medical history comes into the ED for complaints of right lower quadrant abdominal pain, does have a history of appendectomy, states that she was here a few weeks ago for similar symptoms, states that she was concerned that she might have been lab work and imaging did not show but did show mild adenomyosis, she states that she has had her period today started experiencing severe cramping pain therefore decided come into the ED for further evaluation treatment. Denies any trauma no falls no blood thinners. Related Data Previous Rx's Medication Instructions Recorded cyclobenzaprine 10 mg tablet 10 mg PO TID PRN muscle spasm #20 05/08/23 tabs ondansetron HCl 4 mg tablet 4 mg PO Q8H PRN nausea and 10/08/23 vomiting #10 tabs trazodone 50 mg tablet 50 mg PO BEDTIME PRN insomnia #20 03/13/24 tabs baclofen 10 mg tablet 10 mg PO BEDTIME 7 days #7 tabs 03/21/24 Allergies Allergy/AdvReac Type Severity Reaction Status Date / Time naproxen AdvReac Hives Verified 03/13/24 14:47 Review of Systems Review of Systems Narrative: General: Denies fever, chills, weight loss HEENT: Denies headache, eye drainage, eye irritation, head trauma, sore throat, voice change Cardiovascular: Denies any chest pain, palpitations, shortness of breath, tachycardia Respiratory: Denies any shortness of breath, cough, wheeze, stridor GI/: Positive for abdominal pain, nausea vomiting, denies diarrhea, bright red blood per rectum, melanotic stools, urinary frequency, urinary retention, dysuria, hematuria MSK: Denies any joint pain, muscle pains, swelling Skin: Denies any rashes, lesions, discoloration Neuro: Denies any headache, lightheadedness, dizziness, fainting, weakness Psych: Denies SI/HI Patient History Social History Smoking Status: Current some day smoker Smoking Status: Current some day smoker tobacco type: vaping alcohol intake frequency: holidays/special occasions only Substance Use Type: marijuana Exam Narrative Exam Narrative: General: Cooperative, comfortable, well-developed, not in acute distress HEENT: Normocephalic, atraumatic, PERRLA, normal sclera, eyelids normal, Neck: Active full range of motion, atraumatic Chest: Normal to inspection, negative crepitus, no overlying erythema ecchymosis Respiratory: Normal respiratory effort, not in acute respiratory distress, clear to auscultation bilaterally negative cough, wheeze, tachypnea, rhonchi, rales Cardiology: Regular rate rhythm negative gallop, murmur, rubs GI/: Normal to inspection, soft, nonrigid, no tenderness to palpation, exam deferred MSK: Full range of active range of motion of all 4 extremities, atraumatic Skin: No rashes lesions noted Neuro: Alert awake oriented x3, moves all 4 extremities spontaneously, cranial nerves intact, able to answer all questions appropriately follows commands appropriately Psych: Cooperative, negative suicidal or homicidal ideations Initial Vital Signs Initial Vital Signs: Vital Signs Temperature 98.4 F 03/21/24 15:36 Pulse Rate 65 03/21/24 15:36 Respiratory Rate 16 03/21/24 15:36 Blood Pressure 113/75 03/21/24 15:36 Pulse Oximetry 99 03/21/24 15:36 Oxygen Delivery Method Room Air 03/21/24 15:36 Course Orders Ordered: ED Orders 03/21/24 16:25 CT abdomen pelvis w con Stat 03/21/24 16:45 Complete Blood Count AUTO DIFF Stat Comprehensive Metabolic Panel Stat Lipase Stat Discontinued Medications Diphenhydramine HCl (Diphenhydramine 50 Mg/Ml Vial) 25 mg IV NOW ONE Stop: 03/21/24 17:07 Last Admin: 03/21/24 17:06 Dose: 25 mg Documented By: MPO Sodium Chloride (Normal Saline 0.9%) 1,000 mls @ 1,000 mls/hr IV BOLUS ONE Stop: 03/21/24 17:23 Last Admin: 03/21/24 17:04 Dose: 1,000 mls/hr Documented By: MPO Ketorolac Tromethamine (Ketorolac 30 Mg/Ml Vial) 30 mg IV NOW ONE Stop: 03/21/24 16:25 Last Admin: 03/21/24 17:03 Dose: 30 mg Documented By: TRACEY Ondansetron HCl (Ondansetron 4 Mg/2 Ml Inj) 4 mg IV NOW ONE Stop: 03/21/24 16:25 Last Admin: 03/21/24 17:04 Dose: 4 mg Documented By: TRACEY Vital Signs Vital signs: Vital Signs - 8 hr 03/21/24 15:36 03/21/24 16:17 03/21/24 16:30 Temperature 98.4 F Pulse Rate 65 85 78 Respiratory Rate 16 Blood Pressure 113/75 Pulse Oximetry 99 99 99 Oxygen Delivery Method Room Air 03/21/24 16:30 03/21/24 17:01 Temperature Pulse Rate 90 Respiratory Rate Blood Pressure 109/61 Pulse Oximetry 96 Oxygen Delivery Method MDM - Abdominal Pain Differential Diagnosis Differential diagnosis: Likely abdominal pain, constipation, endometriosis, gastroenteritis and other (Urinary tract infection, electrolyte abnormality) Lab Data 03/21/24 16:45 03/21/24 16:45 Labs: Lab Results 03/21/24 Range/Units 16:45 WBC 8.3 (4.5-11.0) X10^3/uL RBC 4.63 (4.0-5.2) X10^6/uL Hgb 12.0 (12.0-16.0) g/dL Hct 36.1 (36-46) % MCV 78.1 L (80-100) fL MCH 25.9 L (26-34) PG MCHC 33.1 (30-36) % RDW 14.7 (11.6-14.8) % Plt Count 358 (150-400) X10^3/uL Neut % (Auto) 63.3 (50-75) % Lymph % (Auto) 28.9 (25-40) % [place] % (Auto) 5.5 (3-14) % Eos % (Auto) 2.0 (2-4) % Baso % (Auto) 0.3 (0-2) % Neut # (Auto) 5300 (4469-0107) /uL Lymph # (Auto) 2400 (1924-6903) /uL [place] # (Auto) 500 (0-900) /uL Eos # (Auto) 200 (0-450) /uL Baso # (Auto) 0 (0-100) /uL Sodium 137 (137-145) mmol/L Potassium 4.0 (3.4-5.1) mmol/L Chloride 106 (98-107) mmol/L Carbon Dioxide 23 (22-32) mmol/L BUN 9 (7-17) mg/dL Creatinine 0.72 (0.52-1.04) mg/dL Estimated GFR > 60 (>60) mL/min BUN/Creatinine Ratio 12.5 (6-22) Glucose 95 (70-100) mg/dL Calcium 8.8 (8.4-10.2) mg/dL Total Bilirubin 0.5 (0.2-1.3) mg/dL AST 66 H (14-36) IU/L ALT 68 H (<35) IU/L Alkaline Phosphatase 137 H (38-126) U/L Total Protein 8.2 (6.3-8.2) g/dL Albumin 4.3 (3.5-5.0) g/dL Globulin 3.9 (1.7-4.1) g/dL Albumin/Globulin Ratio 1.1 (1.0-2.8) Lipase 46 (23-300) U/L Imaging Data CT scan - abdomen/pelvis: Radiologist's Impression: PROCEDURE: CT ABDOMEN PELVIS W CON INDICATIONS: Lower abdominal pain TECHNIQUE: After the administration of intravenous contrast, axial sections acquired from the lung bases to the pubic symphysis. Coronal and sagittal reformats were performed. For radiation dose reduction, the following was used: automated exposure control, adjustment of mA and/or kV according to patient size. COMPARISON: None. FINDINGS: Image quality: Diagnostic. Lower Chest: No significant findings. ABDOMEN: Liver: No solid mass. Gallbladder: No radiopaque gallstones or wall thickening. Biliary ducts: No biliary dilation. Pancreas: No ductal dilation. Spleen: Size is within normal limits. Adrenal Glands: No adrenal nodules. Kidneys and Ureters: No hydronephrosis. No solid mass. No complex renal cystic lesion which requires follow up. Stomach and Bowel: Normal appendix. Distal colon is nondistended. Nonspecific nondilated fluid-filled loops of small bowel are seen in the central abdomen. Peritoneum: No abnormal intraperitoneal fluid. No free air. Ventral Wall: Small fat containing periumbilical hernia. Abdominal Nodes: No retroperitoneal or mesenteric adenopathy by size criteria. Vessels: Aorta and inferior vena cava are normal in size. PELVIS: Pelvic Organs: Ovaries are symmetric in size. Uterus is unremarkable. Bladder: No bladder wall thickening, accounting for underdistention. Pelvic Nodes: No enlarged lymph nodes. Miscellaneous: No inguinal hernias are seen. Bones: No aggressive osseous abnormality. IMPRESSION: Mild bowel wall thickening versus underdistention of the colon and nondilated fluid-filled loops of small bowel in the central abdomen. Findings are nonspecific and may be normal though a possible mild enterocolitis is not excluded. Otherwise, no acute abnormality is seen in the abdomen or pelvis. MDM Narrative Medical decision making narrative: Patient is a 28-year-old female no significant past medical history presents for right lower quadrant abdominal pain ongoing and persistent for 1 day. Does endorse nausea vomiting secondary to the pain. She is also complaining of headache but no visual disturbances. CT scan without any acute findings, lab work unremarkable, reviewed patient's previous ultrasound that was performed on 03/13/2024 did show large uterus with heterogeneous myometrial echo texture with possible adenomyosis symptoms more likely secondary to this due to the fact that patient's pain started when she started her menstruation. Patient instructed to follow up with OBGYN will be discharged home with outpatient follow up safe for discharge home Discharge Plan Departure Patient Disposition: Home Clinical Impression: Abdominal pain Activity Restrictions/Additional Instructions: Please read the discharge instructions sheet carefully and bring all papers to all doctor follow-up visits, as it may contain information that your doctor may want to see. Disease processes change and evolve, if your symptoms worsen or if you develop any new symptoms that are concerning to you please return for evaluation. Your evaluation today does not show any evidence of any life-threatening/serious illnesses requiring admission to the hospital or surgery. Please follow-up with your doctor for re-evaluation in approximately 1 day. Seek immediate medical attention for any worrisome symptoms. Prescriptions: New baclofen 10 mg tablet 10 mg PO BEDTIME 7 Days Qty: 7 0RF No Action cyclobenzaprine 10 mg tablet 10 mg PO TID PRN (Reason: muscle spasm) Qty: 20 0RF trazodone 50 mg tablet 50 mg PO BEDTIME PRN (Reason: insomnia) Qty: 20 0RF ondansetron HCl 4 mg tablet 4 mg PO Q8H PRN (Reason: nausea and vomiting) Qty: 10 0RF Referrals: Karen Fernandez MD [Physician] - Stand Alone Forms: Patient Portal/API
[2024-03-21 16:17] VITALS: PULSE 85; O2SAT 99
--- NOTE | 2024-03-21 16:25 | DI.CT.S_ITS ---
PROCEDURE: CT ABDOMEN PELVIS W CON INDICATIONS: Lower abdominal pain TECHNIQUE: After the administration of intravenous contrast, axial sections acquired from the lung bases to the pubic symphysis. Coronal and sagittal reformats were performed. For radiation dose reduction, the following was used: automated exposure control, adjustment of mA and/or kV according to patient size. COMPARISON: None. FINDINGS: Image quality: Diagnostic. Lower Chest: No significant findings. ABDOMEN: Liver: No solid mass. Gallbladder: No radiopaque gallstones or wall thickening. Biliary ducts: No biliary dilation. Pancreas: No ductal dilation. Spleen: Size is within normal limits. Adrenal Glands: No adrenal nodules. Kidneys and Ureters: No hydronephrosis. No solid mass. No complex renal cystic lesion which requires follow up. Stomach and Bowel: Normal appendix. Distal colon is nondistended. Nonspecific nondilated fluid-filled loops of small bowel are seen in the central abdomen. Peritoneum: No abnormal intraperitoneal fluid. No free air. Ventral Wall: Small fat containing periumbilical hernia. Abdominal Nodes: No retroperitoneal or mesenteric adenopathy by size criteria. Vessels: Aorta and inferior vena cava are normal in size. PELVIS: Pelvic Organs: Ovaries are symmetric in size. Uterus is unremarkable. Bladder: No bladder wall thickening, accounting for underdistention. Pelvic Nodes: No enlarged lymph nodes. Miscellaneous: No inguinal hernias are seen. Bones: No aggressive osseous abnormality. IMPRESSION: Mild bowel wall thickening versus underdistention of the colon and nondilated fluid-filled loops of small bowel in the central abdomen. Findings are nonspecific and may be normal though a possible mild enterocolitis is not excluded. Otherwise, no acute abnormality is seen in the abdomen or pelvis. Approved by: Casey Bowser M.D. on 03/21/2024 at 17:23
[2024-03-21 16:30] VITALS: BP 109/61; PULSE 78; O2SAT 99
[2024-03-21 16:53] LABS: Add Manual Diff / Slide Review NO; Basophils Absolute Auto 0 /uL (0-100); Basophils Percent Auto 0.3 % (0-2); Eosinophils Absolute Auto 200 /uL (0-450); Hematocrit 36.1 % (36-46); Lymphocytes Absolute Auto 2400 /uL (1100-4500); Lymphocytes Percent Auto 28.9 % (25-40); Mean Corpuscular HGB Conc 33.1 % (30-36); Mean Corpuscular Hemoglobin 25.9 PG (26-34); Mean Corpuscular Volume 78.1 fL (80-100); Monocytes Absolute Auto 500 /uL (0-900); Monocytes Percent Auto 5.5 % (3-14); Neutrophils Absolute Auto 5300 /uL (1500-7000); Neutrophils Percent Auto 63.3 % (50-75); Platelet Count 358 X10^3/uL (150-400); Red Blood Cell Count 4.63 X10^6/uL (4.0-5.2); Red Cell Distribution Width 14.7 % (11.6-14.8); White Blood Cell Count 8.3 X10^3/uL (4.5-11.0)
[2024-03-21 17:01] VITALS: PULSE 90; O2SAT 96
[2024-03-21] MEDS: KETOROLAC 30 MG/ML VIAL IV (17:03)
[2024-03-21 17:04] LABS: Alanine Aminotransferase 68 IU/L (<35); Albumin 4.3 g/dL (3.5-5.0); Albumin Globulin Ratio 1.1 (1.0-2.8); Alkaline Phosphatase 137 U/L (38-126); Aspartate Aminotransferase 66 IU/L (14-36); BUN Creatinine Ratio 12.5 (6-22); Bilirubin Total 0.5 mg/dL (0.2-1.3); Blood Urea Nitrogen 9 mg/dL (7-17); Calcium 8.8 mg/dL (8.4-10.2); Carbon Dioxide 23 mmol/L (22-32); Chloride 106 mmol/L (98-107); Estimated Glomerular Filt Rate > 60 mL/min (>60); Globulin 3.9 g/dL (1.7-4.1); Glucose 95 mg/dL (70-100); HEMOLYSIS < 15 (0-50); Lipase 46 U/L (23-300); Sodium 137 mmol/L (137-145); Total Protein 8.2 g/dL (6.3-8.2)
[2024-03-21] MEDS: ONDANSETRON 4 MG/2 ML INJ IV (17:04)
[2024-03-21] MEDS: SODIUM CHLORIDE 0.9% 1,000 ML 1000 ML IV (17:04)
[2024-03-21] MEDS: diphenhydrAMINE 50 MG/ML VIAL 25 MG IV (17:06)
--- NOTE | 2024-03-21 17:13 | PC.NURSE ---
Addendum entered by Tawanna Dyer R.N. 03/21/24 17:32: 1715 Pt states that she feel better after bendaryl and hives have resolved. Original Note: 1705 pt returned to room after contrasted ct. Pt states that she is feeling itchy and hives observed on neck and face. Denies any SOB, difficulty breathing, cp. No swelling or wheezing observed. Pt speaking in full sentences. Skin pink, warm & dry.
[2024-03-21 17:30] VITALS: PULSE 78; O2SAT 99
[2024-03-21 18:00] VITALS: BP 100/72; PULSE 68; O2SAT 98
== END 2024-03-21 18:28 | disposition home or self-care (01) ==
PROVIDERS: Emergency Provider Student in an Organized Health Care Education/Training Program
DX: R10.31 Right lower quadrant pain (principal)
CPT/HCPCS: 36415; 74177; 80053; 83690; 85025; 96361; 96374; 96375; 99284; J1200; J1885; J2405; Q9967

== ENCOUNTER 2024-04-26 06:02 | Day surgery (SDC) | payer OTHER, MEDICAID, SELFPAY ==
[2024-04-23 12:38] VITALS: BMI 33.6
[2024-04-26] VITALS (15 sets, daily range): BP systolic 102–136; BP diastolic 52–91; PULSE 66–105; RESP 12–18; TEMP 35.9–37.4; O2SAT 94–100; BMI 33.6; BMI 33.7
--- NOTE | 2024-04-26 | PATH_ITS ---
[facility] Accession Number: [id number] No. of containers..01 Tissue . 01 Material submitted: . uterus - UTERUS,CERVIX,BILATERAL FALOPIAN TUBES,BILATERAL OVARIES . 01 Diagnosis: UTERUS, CERVIX, BILATERAL FALLOPIAN TUBES, BILATERAL OVARIES, HYSTERECTOMY AND BILATERAL SALPINGO-OOPHORECTOMY: - Left ovary with cystic corpus luteum. - Bilateral fallopian tubes with endosalpingiosis. - Secretory endometrium. - Cervix and right ovary with no significant diagnostic abnormality. - No evidence of malignancy or intraepithelial neoplasia. . [facility] 05/02/2024 1425 Local . 01 Comment: The surgical concern for adenomyosis is noted; however, in the multiple sections of myometrium evaluated, there is no evidence of adenomyosis/endometriosis. . 01 Electronically signed: . Anna Madden MD, Pathologist NPI- [id number] . 01 Gross description: . Received in formalin with two patient identifiers and uterus, cervix, bilateral fallopian tubes, bilateral ovaries, is an intact uterus (152 grams, 9.5 cm from superior to inferior, 7.2 cm from medial to lateral, 4.8 cm from anterior to posterior) with attached cervix (3.2 x 3.0 cm), left fallopian tube (6.2 x 1.0 cm), left ovary (15 grams, 3.5 x 3.4 x 2.4 cm), right fallopian tube (4.4 x 0.8 cm), right ovary (11 grams, 4.0 x 2.6 x 1.9 cm). . The ectocervix is alexander and finely granular with a patulous os, 1.4 cm in diameter. The serosa is alexander, smooth, and unremarkable. The anterior margin is inked blue while the posterior margin is inked black. The endocervical canal has alexander herringbone mucosa and measures 2.5 cm in length. The endometrial cavity is 3.7 cm from cornu to cornu, and 5.3 cm in length, with pink-alexander, lush endometrium that averages 0.5 cm thick. The myometrium is alexander and moderately trabecular, and up to 2.4 cm in maximum thickness with no lesions identified. . The left tube has violaceous, smooth serosa with no serosal cysts identified. The lumen is slightly dilated and contains mucohemorrhagic material. The left ovary has a alexander, smooth external surface that is inked blue. Sectioning reveals two luteal cysts (1.5 x 1.1 x 1.1 cm and 0.6 x 0.4 x 0.3 cm), as well as multiple thin, smooth-walled cysts filled with alexander serous fluid ranging from 0.2 to 0.4 cm in greatest dimension. The remaining cut surface is unremarkable with no lesions identified. . The right fallopian tube has alexander, violaceous smooth serosa with no cysts identified. The lumen is stellate and unremarkable. The right ovary is alexander, smooth, and inked green. Sectioning reveals multiple thin, smooth-walled cystic structures, 0.1 to 0.7 cm in greatest dimension filled with alexander serous fluid. . Administrative Associate sections are submitted as follows: A1: Anterior and posterior cervix. A2: Anterior full thickness section. A3: Posterior full thickness section. A4-A7: Entire left fallopian tube. A8-A17: Entire left ovary. A18-A21: Entire right fallopian tube. A22-A29: Entire right ovary. ([id number]) . Additional sections are submitted as follows: . A30-A31: Additional myometrium. A32-A33: Endometrial strips. ([id number]) /MRV 05/01/2024 1920 Local . 01 Microscopic: . . . 01 Pathologist provided ICD-10: N94.6 . 01 CPT . 816255 Specimen Comment: A courtesy copy of this report has been sent to [facility]ology Performed at: [address] [address], [place], [place] [id number] MD Abhi Zamora MD Phone: [phone]
[2024-04-26] MEDS: LACTATED RINGERS 1,000 ML 42 ML IV (06:58)
[2024-04-26] MEDS: ACETAMINOPHEN 325 MG TABLET 975 MG PO (07:00)
--- NOTE | 2024-04-26 07:41 | PM.PREOP ---
Pre-operative Note Interval Note History & Physical reviewed/Exam performed by Physician: Yes Changes to H&P: No H&P completed within 30 days and has changed as indicated here:: see H&P from 04/10/24
[2024-04-26] MEDS: CEFAZOLIN 2 GM/100 ML PREMIX 100 ML IV (07:53)
--- NOTE | 2024-04-26 08:33 | SUR.OPER ---
Lithotomy on padded OR bed. [place] Pad Positioner under torso. Purple strap across chest. Head on pillow, arms padded and tucked at sides. Legs secured in padded yellow fins stirrups. Upper body faizan hugger in place.
[2024-04-26] MEDS: BUPIVACAINE 0.25% (PF) VIAL 30 ML INJ (08:34)
--- NOTE | 2024-04-26 10:01 | P.OP_ITS ---
Operative Date/Time/Diagnoses Date of procedure: 04/26/24 Time of procedure: 08:00 Pre-op diagnosis: 1. Adenomyosis 2. Family history of ovarian cancer Post-op diagnosis: same Procedure & Clinicians Procedure: Total laparoscopic hysterectomy Bilateral salpingo-oophorectomy Cystoscopy Same procedure as scheduled: Yes Indications: 28yo with history of severe dysmenorrhea, as well as strong family history of ovarian cancer, desiring definitive management. Surgeon: Moni Santos Animal Attendants And Trainers: Jaime Dimas Anesthesia Type: General Operative Notes Findings: Enlarged, globular, irregularly shaped uterus. Normal appearing bilateral fallopian tubes and bilateral ovaries. Normal appearing liver edge and gallbladder. Specimen(s): other (uterus, cervix, bilateral fallopian tubes, bilateral ovaries) Applied: catheter Estimated Blood Loss (mL): 50 Blood products transfused: none Procedure in detail: The risks, benefits, indications and alternatives of the procedure were reviewed with the patient and informed consent was obtained. The pt was taken to the operating room where general anesthesia was obtained without difficulty. The pt was then placed in the low lithotomy position using Nasim Stirrups and arms were tucked with padding. Sequential compression devices were placed bilaterally for VTE prophylaxis. She was then prepped and draped in the sterile fashion and a Pruitt catheter was placed. She received 2g Ancef for surgical prophylaxis. A V-care uterine manipulator was placed through the cervix into the uterus for uterine manipulation. Attention was then turned to the patient?s abdomen were a 5mm skin incision was made in the inferior aspect of the umbilicus after injecting 0.25% Marcaine. A 5mm trocar and sleeve were then carefully introduced into the peritoneal cavity under direct visualization at a 90-degree angle while tenting up the abdominal wall. Intra-peritoneal placement was confirmed under direct visualization with the laparoscope with entry pressure <5 mmHg. A pneumoperitoneum was obtained with several liters of CO2 gas, maximum pressure of 15 mmHg. Upon entry into the peritoneal cavity, structures immediately below the incision were inspected and found to be free of injury. A survey of the patient's abdomen and pelvis was notable for the above findings. Three additional 5mm port sites, one in the right lateral side and two in the left lateral side, were placed under direct laparoscopic guidance. The Powerseal device was then used to clamp, cut, and ligate the left infundibulopelvic ligament. The left fallopian tube and ovary were from the lateral broad ligament attachments. The utero-ovarian and round ligaments were then clamped, cut, and ligated. The anterior broad ligament was then incised along the bladder reflection and the bladder was dissected off the lower uterine segment until endopelvic fascia was visualized. The uterine artery was then identified, skeletonized, and ligated on the left. The uterosacral ligament and cardinal ligament were transected on the left. Attention was then directed to the right side, where the same procedure was done to clamp, cut, and ligate the right fallopian tube, ovary, and right side of the uterus. The anterior colpotomy was then made using the Bovie L-hook and continued circumferentially inferior to the cervix using the colpotomy ring as a guide. The entire cervix and uterus, as well as bilateral adnexae, were then successfully amputated and delivered through the vagina. The 0 Stratafix suture was then introduced into the abdominal cavity via the vagina. The vaginal cuff was then closed laparoscopically with the barbed suture in a running fashion. The suture needle was removed via the lateral port under direct visualization. The pruitt catheter was then removed, and the cystoscope was then primed and advanced through the urethra and into the bladder. Both ureteral orifices were identified and bilateral efflux of urine was visualized. A survey of the bladder did not show defects or visible suture. The cystoscope was then removed and the bladder was drained. The pruitt catheter was replaced. Attention was then returned to the abdomen, where the pelvis was then irrigated. Excellent hemostasis was noted. The pneumoperitoneum was then released, and the remaining ports were removed. The skin incisions were then reapproximated using 4-0 monocryl suture in a subcuticular fashion and covered with Dermabond. At the completion of the case the sponge and needle counts were correct x 2, and all instruments were confirmed to be removed from the vagina. The patient was taken to the PACU in stable condition. Complications: none Post-operative Condition: stable Disposition: PACU Plan for aftercare: Plan for 1 night stay in the hospital with discharge in the morning.
[2024-04-26] MEDS: HYDROMORPHONE 1 MG INJ IV ×2 (10:25→10:33)
[2024-04-26] MEDS: METOCLOPRAMIDE 10 MG/2 ML INJ IV (10:29)
[2024-04-26] MEDS: ONDANSETRON 4 MG/2 ML INJ IV ×2 (10:30→16:34)
[2024-04-26] MEDS: hydrOXYzine 50 MG/ML INJ IM (10:30)
[2024-04-26] MEDS: OXYCODONE IR 5 MG TABLET PO ×2 (10:41→12:15)
[2024-04-26] MEDS: ACETAMINOPHEN 325 MG TABLET 650 MG PO ×3 (12:15→23:11)
[2024-04-26] MEDS: OXYCODONE IR 5 MG TABLET 10 MG PO ×2 (16:29→21:10)
[2024-04-26] MEDS: KETOROLAC 30 MG/ML VIAL IV ×2 (16:40→23:10)
[2024-04-26] MEDS: DOCUSATE 100 MG CAPSULE PO (21:19)
[2024-04-27 00:55] VITALS: BP 104/53; PULSE 89; RESP 18; TEMP 36.2; O2SAT 96
[2024-04-27] MEDS: OXYCODONE IR 5 MG TABLET PO (02:37)
[2024-04-27 05:49] VITALS: BP 102/60; PULSE 85; RESP 18; TEMP 36.1; O2SAT 96
[2024-04-27 08:00] VITALS: BP 116/68; PULSE 90; RESP 15; TEMP 36.6; O2SAT 96
[2024-04-27] MEDS: ACETAMINOPHEN 325 MG TABLET 650 MG PO (09:27)
[2024-04-27] MEDS: OXYCODONE IR 5 MG TABLET 10 MG PO ×2 (09:28→13:06)
--- NOTE | 2024-04-27 10:01 | PC.NURSE ---
Addendum entered by Ya Gardner R.N. 04/27/24 15:31: Patient just discharged to home. Paperwork done and she is leaving via wheel chair. Original Note: Patient has 3 lapsites to her abdomen that are all cdi and open to air. She states that she is in 10/10 discomfort to the left side of her abdomen, given oxycodone 10mg po with some tylenol and this has been helpful for report. Per daycare director report, RN states that patient was getting out of bed and ambulating on her own to get up and use the bathroom s any difficulty. Today...patient states that she has been using the walker to ambulate. Dr. Santos will be back around noon to see how the patient is doing. Her three lapsites are durmobonded and she is napping now with in her room.
[2024-04-27] MEDS: IBUPROFEN 600 MG TABLET PO (11:08)
[2024-04-27] MEDS: DOCUSATE 100 MG CAPSULE PO (11:08)
[2024-04-27] MEDS: ONDANSETRON 4 MG/2 ML INJ IV (11:14)
[2024-04-27 12:00] VITALS: BP 128/71; PULSE 85; RESP 16; TEMP 36.8; O2SAT 98
--- NOTE | 2024-04-27 14:45 | P.DS_ITS ---
History of Present Illness History of Present Illness Date Patient Seen: 04/27/24 Time Patient Seen: 07:45 Chief complaint: OPB Discharge Providers Provider Discharge Date: 04/27/24 Primary care physician: STEPHANIE Howe Discharge provider: Moni Santos DO Summary Hospital Course Hospital Course: 28-year-old female admitted for planned TLH/BSO. Her surgery was uncomplicated, with an EBL 50. On postop day 1, patient was ambulating with some assistance due to pain, but otherwise tolerating regular diet, voiding spontaneously, with no vaginal bleeding. Patient was educated on pain control regimen at home, and was deemed appropriate for discharge on postoperative day 1. Status at Discharge Cognitive/behavioral status at discharge: oriented Functional status at discharge: independent ambulation Overall status at discharge: patient is progressing back to baseline Time Spent with Patient Time spent: Greater than 30 minutes Exam Vital Signs (past 8 hours): - 04/27/24 08:00 04/27/24 12:00 Temperature 97.9 F 98.3 F Pulse Rate 90 85 Respiratory Rate 15 16 Blood Pressure 116/68 128/71 Pulse Oximetry 96 98 Oxygen Flow Rate 0 0 Oxygen Delivery Method Room Air Oxygen Flow Rate 0 Const General: comfortable and No acute distress Resp Effort & Inspection: normal respiratory effort and able to speak in complete sentences GI Inspection: normal to inspection Palpation: soft Other: Appropriately tender, nondistended Skin Other: 4 laparoscopic incisions intact with Dermabond Neuro General: patient alert, patient awake and patient oriented x3 Cognition: normal cognition Speech: speech normal Extrem General: normal to inspection and no calf tenderness Psych Mood: congruent mood Affect: normal affect [facility] Medical History (Updated 04/10/24 @ 16:57 by Moni Santos DO) Vaginal delivery Anxiety First degree AV block Obesity (BMI 30.0-34.9) Hidradenitis suppurativa History of ectopic Surgical History (Updated 04/10/24 @ 16:54 by Moni Santos DO) History of dilation and curettage History of appendectomy Family History (Updated 04/10/24 @ 16:56 by Moni Santos DO) Mother Cancer Grandmother Cancer Aunt Cancer Social History household members: significant other and children Smoking Status: Former smoker alcohol intake: current substance use type: marijuana (Occasional edibles) Discharge Assessment & Plan Assessment and Plan Plan of Treatment: Discharge to home with outpatient follow up as scheduled. Discharge Plan Discharge Plan Patient Disposition: Home Provider Discharge Comment: Take ibuprofen 800mg every 6hrs and acetaminophen 650mg every 6hrs for pain. Use oxycodone 5-10mg every 4hrs as needed for severe pain. Avoid lifting greater than 20lbs for at least 4 weeks. Avoid placing anything in the vagina for at least 6 weeks, until your follow-up appointment in the office. Discharge orders & Medications Discharge Orders: Discharge (Order); Ordered 04/27/24 Ordered By: Moni Santos Prescriptions: Continued estradiol 0.075 mg/24 hr patch semiweekly 1 patch transdermal 2XW Qty: 8 6RF Rx Instructions: apply 1 patch for 3 days alternating with 1 patch for 4 days each week for 3 wks per 4-wk cycle oxycodone 5 mg tablet 5 - 10 mg PO Q6H PRN (Reason: pain) Qty: 14 0RF Rx Instructions: for postoperative pain cyclobenzaprine 10 mg tablet 10 mg PO TID PRN (Reason: muscle spasm) Qty: 20 0RF trazodone 50 mg tablet 50 mg PO BEDTIME PRN (Reason: insomnia) Qty: 20 0RF ondansetron HCl 4 mg tablet 4 mg PO Q8H PRN (Reason: nausea and vomiting) Qty: 10 0RF Follow up/Referrals: Moni Santos DO [Physician] - Diet/Activity/Treatments Diet: Diet as Tolerated Activity: As tolerated. Skin/Wound/Dressing Care Report to your healthcare provider any signs of infection, such as:: chills, fever, increased pain, unusual drainage and unusual redness Dressing: You have surgical glue over your incisions, which will peel off in 1 week. You may shower normally. Visit Report/Discharge Packet Instructions: DI for Hysterectomy, DI for Laparoscopy, DI for Prescription Opioid Use, Oxycodone Stand Alone Forms: Patient Portal/API Discharge Data Primary Care Provider: Joaquin Dominguez Attending Provider: Moni Santos Quality VTE Deep Vein Thrombosis/Pulmonary Embolism Present on Admission: No
--- NOTE | 2024-04-27 16:00 | CM.DANOTE ---
DCP Assessment Note: Pt is a 28yo female, resident of [place], is admitted for a total hysterectomy. Pt lives in an apartment. Pt's Primary Care Provider is Joaquin Dominguez DNP and insurance is [facility] and Medicaid. Reviewed chart and team rounds for pt's medical status and initial discharge needs. DCP met w/patient at bedside; introduced self and role. Patient was found in bed, alert and oriented, cooperative with assessment. Pt confirmed living situation and good support in partner. Pt expressed preference in returning home when medically cleared. Denied any need for referrals to community services or home health. Plan: Anticipating discharge home with partner to transport. CM team will follow closely for coordination of discharge plans. BRONSON Angel Discharge Planning/Care Management CM Discharge Assessment Start: 04/27/24 15:59 Freq: Status: Active Protocol: Document 04/27/24 15:59 MW (Rec: 04/27/24 16:00 MW [id number]) Discharge Planning Assessment Assigned Caustic Preparer IRASEMA Leija DPOA/Assigned Designee Name Reza Daughertycallie, Partner Contact Information [phone] Advance Directives? No History Provided By Patient,Family Member,Medical Record Has Patient been admitted in last 30 No days? Prior Living Arrangements Apartment/Condo Household Members significant other,children Type of transporation used prior to Drives own vehicle admit Independent with ADL's Yes Is patient alert and oriented? Yes Caregiver for Another Yes: Daughter Barriers to Discharge No Discharge Plan Home Whiteboard Updated in Patient Room with Yes name and ext. # of Caustic Preparer Comment [phone] Review Status In Process Please Provide Date Initial DC 04/27/24 Assessment Was Performed Next Review Type Continued Stay Review
== END 2024-04-27 15:31 | disposition home or self-care (01) ==
LOC: OR 06:03 → AC 06:04
PROVIDERS: Referring Provider Student in an Organized Health Care Education/Training Program; Visit Provider Student in an Organized Health Care Education/Training Program
PROC: 0UT94ZZ Resection of Uterus, Percutaneous Endoscopic Approach (ICD-10-PCS; CPT 58571; principal; 2024-04-26 07:45)
DX: N94.6 Dysmenorrhea, unspecified (principal); Z80.41 Family history of malignant neoplasm of ovary; N83.12 Corpus luteum cyst of left ovary; N94.89 Other specified conditions associated with female genital organs and menstrual cycle
CPT/HCPCS: 58571; 81025; J0330; J0690; J1100; J1171; J1885; J2250; J2405; J2704; J2765; J3010; J3410; J3490

== ENCOUNTER 2024-07-13 11:11 | Emergency (ER) | payer OTHER, SELFPAY ==
[2024-04-26 11:49] VITALS: BMI 33.7
[2024-07-13 11:46] VITALS: BP 119/80; PULSE 93; RESP 18; TEMP 37.8; O2SAT 97; BMI 34.9
--- NOTE | 2024-07-13 12:08 | ED_ITS ---
HPI - URI/Sore Throat <Barbra De La Rosa PA-C - Last Filed: 07/13/24 16:25> General Chief Complaint: Upper Respiratory Symptoms Stated Complaint: Spots in back of throat ,Maybe Flu per patient Time Seen by Provider: 07/13/24 12:07 Source: patient Mode of arrival: Ambulatory History of Present Illness HPI Narrative: Ms. Dooley is a pleasant 28-year-old female with a past medical history of hysterectomy 2.5 months ago, prior tonsillectomy who presents to the emergency department for flu-like symptoms x4 days. Patient states her symptoms started with congestion and cough progress to sore throat and right-sided rib pain with coughing today. Some right ear pain. She has been taking Sudafed, DayQuil, NyQuil, ibuprofen without improvement of her symptoms. Today is the worst day of her symptoms. She is accompanied by her who contributes to the history. States that she took 400mg ibuprofen 2 hours ago. She noticed white spots on the back of her throat. She denies chest pain, shortness of breath, abdominal pain, nausea, vomiting. She did have a few episodes of loose stools. No dysuria or UTI symptoms. She does not smoke. Related Data Previous Rx's Medication Instructions Recorded escitalopram oxalate 10 mg tablet 10 mg PO DAILY #60 tabs 05/11/24 estradiol 0.1 mg/24 hr semiweekly 1 patch transdermal 2XW #8 ea 05/11/24 transdermal patch benzonatate 100 mg capsule 100 mg PO TID PRN cough #20 caps 07/13/24 Allergies Allergy/AdvReac Type Severity Reaction Status Date / Time naproxen AdvReac Hives Verified 07/13/24 11:45 Review of Systems <Barbra De La Rosa PA-C - Last Filed: 07/13/24 16:25> Review of Systems ROS Unobtainable: All systems reviewed & are unremarkable except as noted in HPI and below Patient History <Barbra De La Rosa PA-C - Last Filed: 07/13/24 16:25> Medical History Surgical menopause on hormone replacement therapy Family history of ovarian cancer Vaginal delivery Anxiety First degree AV block Obesity (BMI 30.0-34.9) Hidradenitis suppurativa History of ectopic Surgical History H/O bilateral salpingo-oophorectomy (~04/2024) Status post laparoscopic hysterectomy (~04/2024) History of dilation and curettage History of appendectomy Family History Mother Cancer Grandmother Cancer Aunt Cancer Social History household members: significant other and children Smoking Status: Former smoker alcohol intake: current substance use type: marijuana (Occasional edibles) Smoking Status: Former smoker tobacco type: vaping alcohol intake frequency: holidays/special occasions only Exam <Barbra De La Rosa PA-C - Last Filed: 07/13/24 16:25> Narrative Exam Narrative: GENERAL: 28 year old patient appears stated age. Well-developed patient, in no acute distress. HEAD: Atraumatic. Normocephalic. EYES: No scleral icterus. No injection or drainage. ENT: Non erythematous TMs bilaterally. Nose without bleeding, purulent drainage. Throat with very minimal vesicles on posterior oropharynx. No tonsils. No erythema. Airway patent. NECK: Trachea midline. Cervical ROM intact. CARDIOVASCULAR: Regular rate and rhythm. Tenderness to palpation of right anterior lateral intercostal muscles. RESPIRATORY: ?Nonlabored respirations. ?Speaking in clear, full sentences. ?Clear to auscultation. Breath sounds equal bilaterally. No wheezes, rales, or rhonchi. ? NEURO: AOx3. ?Clear speech. ?Moves all 4 extremities appropriately. SKIN: No rash or erythema of visible areas Initial Vital Signs Initial Vital Signs: Vital Signs Temperature 100.1 F H 07/13/24 11:46 Pulse Rate 93 H 07/13/24 11:46 Respiratory Rate 18 07/13/24 11:46 Blood Pressure 119/80 07/13/24 11:46 Pulse Oximetry 97 07/13/24 11:46 Oxygen Delivery Method Room Air 07/13/24 11:46 <Venessa Flores DO - Last Filed: 07/16/24 07:52> Initial Vital Signs Initial Vital Signs: Vital Signs Temperature 100.1 F H 07/13/24 11:46 Pulse Rate 93 H 07/13/24 11:46 Respiratory Rate 18 07/13/24 11:46 Blood Pressure 119/80 07/13/24 11:46 Pulse Oximetry 97 07/13/24 11:46 Oxygen Delivery Method Room Air 07/13/24 11:46 Course <Barbra De La Rosa PA-C - Last Filed: 07/13/24 16:25> Orders Ordered: Discontinued Medications Acetaminophen (Acetaminophen 325 Mg Tablet) 975 mg PO NOW ONE Stop: 07/13/24 12:19 Last Admin: 07/13/24 12:26 Dose: 975 mg Documented By: SB Vital Signs Vital signs: Vital Signs - 8 hr 07/13/24 11:46 07/13/24 13:00 Temperature 100.1 F H 98.1 F Pulse Rate 93 H 16 L Respiratory Rate 18 16 Blood Pressure 119/80 114/67 Pulse Oximetry 97 97 Oxygen Delivery Method Room Air Room Air <Venessa Flores DO - Last Filed: 07/16/24 07:52> Orders Ordered: Discontinued Medications Acetaminophen (Acetaminophen 325 Mg Tablet) 975 mg PO NOW ONE Stop: 07/13/24 12:19 Last Admin: 07/13/24 12:26 Dose: 975 mg Documented By: SB Vital Signs Vital signs: Vital Signs - 8 hr 07/13/24 11:46 07/13/24 13:00 Temperature 100.1 F H 98.1 F Pulse Rate 93 H 16 L Respiratory Rate 18 16 Blood Pressure 119/80 114/67 Pulse Oximetry 97 97 Oxygen Delivery Method Room Air Room Air MDM - URI/Sore Throat <Barbra De La Rosa PA-C - Last Filed: 07/13/24 16:25> Medical Records Attestation: I reviewed the patient's medical records. Lab Data Labs: Lab Results 07/13/24 Range/Units 12:30 SARS-CoV-2 (PCR) Negative (Negative) Influenza A (RT-PCR) Flu a negative (NEGATIVE) Influenza B (RT-PCR) Flu b negative (NEGATIVE) RSV (PCR) Negative (Negative) Group A Strep (PCR) Negative (Negative) Imaging Data Chest x-ray: Radiologist's Impression: PROCEDURE: XR CHEST 2V INDICATIONS: cough, fever, right rib pain with coughing TECHNIQUE: 2 views of the chest were acquired. COMPARISON: None. FINDINGS: Surgical changes and devices: None. Lungs and pleura: Lungs are clear. No pleural effusions or pneumothorax. Mediastinum: Mediastinal contours are normal. Heart size is normal. Bones and chest wall: No suspicious bony abnormalities. Soft tissues appear unremarkable. IMPRESSION: No acute cardiopulmonary abnormality is seen. MDM Narrative Medical decision making narrative: 28-year-old female with a past medical history of hysterectomy 2.5 months ago, prior tonsillectomy who presents to the emergency department for flu-like symptoms x4 days. Differential diagnosis includes but is not limited to viral syndrome, herpangina, bronchitis, viral URI, pneumonia, strep pharyngitis, sinusitis, etc. On exam patient is in no acute distress, nontoxic appearing, she does have heart rate of 93 and temperature of 100.1? in triage. Physical exam reveals small amount of posterior oropharyngeal vesicles, tenderness to palpation of right anterior lateral intercostal muscles, otherwise unremarkable. We will proceed with two-view chest x-ray for concern with pain and right-sided chest with coughing to evaluate for pneumonia, treat with acetaminophen, viral swab and strep swab as well. Strep swab negative. Chest x-ray negative for pneumonia. Viral swab negative. Patient is feeling better after ED treatment. Her symptoms are most consistent with a upper respiratory viral infection at this time. She was prescribed Tessalon Perles and recommended ibuprofen/Tylenol for fevers and pain, increased hydration and rest. Her VS all improved. We discussed ED return precautions and follow up with PCP. Patient verbalized understanding of all of the information and is agreeable to the plan. She is stable for discharge home. <Venessa Flores, - Last Filed: 07/16/24 07:52> Lab Data Labs: Lab Results 07/13/24 Range/Units 12:30 SARS-CoV-2 (PCR) Negative (Negative) Influenza A (RT-PCR) Flu a negative (NEGATIVE) Influenza B (RT-PCR) Flu b negative (NEGATIVE) RSV (PCR) Negative (Negative) Group A Strep (PCR) Negative (Negative) Discharge Plan Departure Patient Disposition: Home Clinical Impression: Upper respiratory infection, viral Instructions: DI for Viral Upper Respiratory Infection -- Adult Activity Restrictions/Additional Instructions: Thank you for coming to the emergency department today. You were evaluated for upper respiratory symptoms. Your chest x-ray was negative and reveals no pneumonia. Your strep throat swab was negative and your viral swab was negative for flu, COVID, RSV. Your symptoms are most consistent with an upper respiratory viral infection. I have prescribed you cough medicine to use if needed and I also would like you to take ibuprofen/Tylenol for pain and fevers. Please rest and hydrate with water and Pedialyte. Follow up with your primary care doctor next week and return to the emergency department if you develop any worsening symptoms, difficulty breathing, fevers lasting longer than a week or any other concerns. Please drink warm tea with honey to help with your throat pain. Please take Ibuprofen (Motrin/Advil) or Acetaminophen (Tylenol) for pain. These are available over the counter. You may take Ibuprofen 600 mg every 8 hours with food for pain. You may also take Acetaminophen 650 mg every 4-6 hours for pain. Do not exceed 3000 mg of Tylenol a day as this can cause liver damage. Do not drink alcohol with either of these medications. Please follow up with your primary care doctor within the next 2-3 days for ER follow-up. (If you do not have a PCP you can call [phone]. ?to schedule an appointment with an [facility] Primary Care Provider) IF YOU DEVELOP ANY NEW OR WORSENING SYMPTOMS, RETURN TO THE ER! Please read the attached instructions, they highlight more specific treatments and interventions for you at home. Thank you for letting me participate in your care, Barbra De La Rosa PA-C Prescriptions: New benzonatate 100 mg capsule 100 mg PO TID PRN (Reason: cough) Qty: 20 0RF No Action estradiol 0.1 mg/24 hr patch semiweekly 1 patch transdermal 2XW Qty: 8 3RF Rx Instructions: apply 1 patch for 3 days alternating with 1 patch for 4 days each week for 3 wks per 4-wk cycle escitalopram oxalate 10 mg tablet 10 mg PO DAILY Qty: 60 1RF Referrals: Joaquin Dominguez ARNP [Primary Care Provider] - Stand Alone Forms: Patient Portal/API/Survey ED Sign-out <Venessa Flores DO - Last Filed: 07/16/24 07:52> Cosign ED Attending Cosginaature Attestation: I was available for consultation.
--- NOTE | 2024-07-13 12:18 | DI.RAD.S_ITS ---
PROCEDURE: XR CHEST 2V INDICATIONS: cough, fever, right rib pain with coughing TECHNIQUE: 2 views of the chest were acquired. COMPARISON: None. FINDINGS: Surgical changes and devices: None. Lungs and pleura: Lungs are clear. No pleural effusions or pneumothorax. Mediastinum: Mediastinal contours are normal. Heart size is normal. Bones and chest wall: No suspicious bony abnormalities. Soft tissues appear unremarkable. IMPRESSION: No acute cardiopulmonary abnormality is seen. Dictated by: Parish Armando M.D. on 07/13/2024 at 12:52 Approved by: Parish Armando M.D. on 07/13/2024 at 12:54
[2024-07-13] MEDS: ACETAMINOPHEN 325 MG TABLET 975 MG PO (12:26)
[2024-07-13 12:47] LABS: Strep Grp A by PCR Rapid NEGATIVE (Negative)
[2024-07-13 13:00] VITALS: BP 114/67; PULSE 76; RESP 16; TEMP 36.7; O2SAT 97
[2024-07-13 13:17] LABS: Influenza A - CEPHEID Flu A NEGATIVE (NEGATIVE); Influenza B - CEPHEID Flu B NEGATIVE (NEGATIVE); Respiratory Syncytial Virus Negative (Negative)
[2024-07-13 13:18] LABS: COVID-19 CEPHEID 4-PLEX PCR Negative (Negative)
== END 2024-07-13 13:55 | disposition home or self-care (01) ==
PROVIDERS: Emergency Provider Physician Assistant
DX: J06.9 Acute upper respiratory infection, unspecified (principal); J02.9 Acute pharyngitis, unspecified; R07.81 Pleurodynia; R05.9 Cough, unspecified; H92.01 Otalgia, right ear; E66.9 Obesity, unspecified; Z68.34 Body mass index [BMI] 34.0-34.9, adult; Z90.710 Acquired absence of both cervix and uterus; Z80.41 Family history of malignant neoplasm of ovary
CPT/HCPCS: 0241U; 71046; 87651; 99283